=== PATIENT | male | born 1960 | race African-American/Black ===

== ENCOUNTER 2020-03-14 17:39 | Inpatient (IN) | payer MEDICAID ==
[~2020-03-14] VITALS: Ht 177.8 cm; Wt 83.9 kg
[2020-03-14] MEDS ORDERED: SODIUM CHLORIDE 0.9% 1,000 ML IV ONE (19:04)
[2020-03-14 19:47] LABS: BASOPHILS % 0.4 % (0.0-2.0); EOSINOPHILS % 0.1 % (0.0-5.0); HEMATOCRIT. 48.9 % (42.0-52.0); HEMOGLOBIN. 16.2 g/dL (14.0-18.0); LYMPHOCYTES % 19.2 % (20.0-50.0); MEAN CORPUSCULAR HEMOGLOBIN 29.3 pg (28.0-32.0); MEAN CORPUSCULAR VOLUME 88.4 fL (80.0-94.0); MEAN PLATELET VOLUME 9.3 fl (7.4-10.4); MONOCYTES % 8.9 % (2.0-8.0); NEUTROPHILS % 71.4 % (40.0-76.0); PLATELET 189 x1000/uL (130-400); RED BLOOD CELL COUNT 5.53 mill/uL (4.7-6.1); RED CELL DISTRIBUTION WIDTH 15.5 % (11.6-14.6)
[2020-03-14 19:55] LABS: CHLORIDE 105 mEq/L (98-107)
[2020-03-14] MEDS ORDERED: ASPIRIN 325MG EC TABLET PO ONE (20:30)
[2020-03-15] MEDS ORDERED: ACETAMINOPHEN 325MG TABLET PO PRN (00:30)
[2020-03-15] MEDS ORDERED: ATORVASTATIN CALCIUM 40MG TABLET PO SCH (00:30)
[2020-03-15] MEDS ORDERED: TRAZODONE HCL 50MG TABLET PO PRN (00:30)
[2020-03-15] MEDS ORDERED: NITROGLYCERIN 0.4MG TABLET SL SL PRN (00:30)
[2020-03-15] MEDS ORDERED: ONDANSETRON HCL 4MG/2ML INJ IV PRN (00:30)
[2020-03-15 01:00] VITALS: BP 168/98
[2020-03-15 04:00] VITALS: BP 156/89
[2020-03-15 07:53] LABS: BASOPHILS % 0.9 % (0.0-2.0); EOSINOPHILS % 1.8 % (0.0-5.0); HEMATOCRIT. 42.6 % (42.0-52.0); LYMPHOCYTES % 40.3 % (20.0-50.0); MEAN CORPUSCULAR HEMOGLOBIN 28.9 pg (28.0-32.0); MEAN CORPUSCULAR VOLUME 87.9 fL (80.0-94.0); MEAN PLATELET VOLUME 9.5 fl (7.4-10.4); MONOCYTES % 8.7 % (2.0-8.0); NEUTROPHILS % 48.3 % (40.0-76.0); PLATELET 199 x1000/uL (130-400); RED BLOOD CELL COUNT 4.85 mill/uL (4.7-6.1); RED CELL DISTRIBUTION WIDTH 15.3 % (11.6-14.6)
[2020-03-15 07:58] LABS: CHLORIDE 106 mEq/L (98-107)
[2020-03-15 08:00] VITALS: BP 165/101
[2020-03-15] MEDS: CARVEDILOL 3.125 MG TABLET PO SCH ×2 (09:22→20:50)
[2020-03-15] MEDS: ASPIRIN 81MG EC TABLET PO SCH (09:22)
[2020-03-15] MEDS: HEPARIN 5000 UNITS/ML VIAL SUBCUT SCH ×2 (09:23→20:50)
[2020-03-15] MEDS ORDERED: REGADENOSON 0.4 MG/5 ML IV NR (10:30)
[2020-03-15] MEDS: AMLODIPINE 5MG TABLET PO SCH ×2 (11:54→20:50)
[2020-03-15 12:00] VITALS: BP 140/81
[2020-03-15 16:00] VITALS: BP 159/78
[2020-03-15 20:00] VITALS: BP 133/64
[2020-03-15] MEDS: CLONIDINE 0.1MG TABLET PO SCH (20:49)
[2020-03-15] MEDS ORDERED: ATORVASTATIN CALCIUM 10MG TABLET PO SCH (21:00)
[2020-03-16] VITALS: BP 139/84
[2020-03-16 04:00] VITALS: BP 127/76
[2020-03-16 07:05] LABS: BASOPHILS % 0.5 % (0.0-2.0); EOSINOPHILS % 2.3 % (0.0-5.0); HEMATOCRIT. 42.1 % (42.0-52.0); LYMPHOCYTES % 48.2 % (20.0-50.0); MEAN CORPUSCULAR HEMOGLOBIN 29.1 pg (28.0-32.0); MEAN CORPUSCULAR VOLUME 87.8 fL (80.0-94.0); MEAN PLATELET VOLUME 9.4 fl (7.4-10.4); PLATELET 208 x1000/uL (130-400); RED CELL DISTRIBUTION WIDTH 15.2 % (11.6-14.6)
[2020-03-16 07:07] LABS: CHLORIDE 107 mEq/L (98-107)
[2020-03-16 07:17] LABS: LDL CHOLESTEROL 99 mg/dL (5-100)
[2020-03-16 07:20] LABS: HDL CHOLESTEROL 34 mg/dL (40-59)
[2020-03-16 08:00] VITALS: BP 146/99
[2020-03-16] MEDS: CARVEDILOL 3.125 MG TABLET PO SCH (09:00)
[2020-03-16] MEDS: HEPARIN 5000 UNITS/ML VIAL SUBCUT SCH (09:00)
[2020-03-16] MEDS: ASPIRIN 81MG EC TABLET PO SCH (09:00)
[2020-03-16] MEDS: CLONIDINE 0.1MG TABLET PO SCH (09:00)
[2020-03-16] MEDS: AMLODIPINE 5MG TABLET PO SCH (09:00)
[2020-03-16] MEDS ORDERED: REGADENOSON 0.4 MG/5 ML IV ONE (10:03)
[2020-03-16] MEDS ORDERED: AMLO5TAB88 PO (13:09)
[2020-03-16] MEDS ORDERED: COR3 PO (13:09)
[2020-03-16] MEDS ORDERED: COR3 MT (13:21)
[2020-03-16] MEDS ORDERED: HYDR-4134 MT (13:21)
[2020-03-16] MEDS ORDERED: CLONIDINE 0.1MG TABLET PO SCH (14:00)
[2020-03-16] MEDS ORDERED: HYDRALAZINE HCL 25MG TABLET PO SCH (14:00)
[2020-03-16] MEDS ORDERED: PANT40TA4 MT (14:12)
[2020-03-16] MEDS ORDERED: SIME125C MT (14:12)
[2020-03-16] MEDS ORDERED: MAGNESIUM/ALUMINUM HYDROXIDE/SIMETHICONE 30ML UDC PO SCH (14:15)
[2020-03-16] MEDS ORDERED: PANTOPRAZOLE 40MG DR TABLET PO SCH (14:15)
[2020-03-16 14:32] VITALS: BP 143/84
== END 2020-03-16 16:00 | disposition home or self-care (01) | DRG 190 ==
LOC: ER 17:39 → 8WST 22:45 → ENRESERV 23:38 → 8WST 03-15 05:09
PROVIDERS: ADMIT Internal Medicine; ATTEND Internal Medicine
DX: I21.4 Non-ST elevation (NSTEMI) myocardial infarction (principal); I24.8 Other forms of acute ischemic heart disease; N17.9 Acute kidney failure, unspecified; I13.10 Hypertensive heart and chronic kidney disease without heart failure, with stage 1 through stage 4 chronic kidney disease, or unspecified chronic kidney disease; E87.1 Hypo-osmolality and hyponatremia; E78.5 Hyperlipidemia, unspecified; E11.22 Type 2 diabetes mellitus with diabetic chronic kidney disease; N18.9 Chronic kidney disease, unspecified; R17 Unspecified jaundice; I87.2 Venous insufficiency (chronic) (peripheral); F17.210 Nicotine dependence, cigarettes, uncomplicated; Z59.0 Homelessness; I25.2 Old myocardial infarction; Z82.49 Family history of ischemic heart disease and other diseases of the circulatory system; Z86.718 Personal history of other venous thrombosis and embolism; Z91.14 Patient's other noncompliance with medication regimen; Z79.899 Other long term (current) drug therapy
CPT/HCPCS: 36415; 71045; 74176; 76770; 78452; 80048; 80053; 80061; 83036; 83735; 84484; 85025; 85379; 93005; 93017; 93306; 93970; 99285; A9500; J1644; J2785; J7030

== ENCOUNTER 2020-03-20 13:30 | Emergency (ER) | payer MEDICAID, OTHER ==
[~2020-03-20] VITALS: Ht 177.8 cm; Wt 82.0 kg
[~2020-03-20 13:30] MED LIST: COR3 MT; HYDR-4134 MT; PANT40TA4 MT; SIME125C MT
[2020-03-20] MEDS ORDERED: SODIUM CHLORIDE 0.9% 500 ML IV ONE (14:00)
[2020-03-20 14:19] LABS: BASOPHILS % 1.2 % (0.0-2.0); EOSINOPHILS % 1.3 % (0.0-5.0); HEMATOCRIT. 46.1 % (42.0-52.0); HEMOGLOBIN. 15.4 g/dL (14.0-18.0); LYMPHOCYTES % 42.7 % (20.0-50.0); MEAN CORPUSCULAR HEMOGLOBIN 29.4 pg (28.0-32.0); MEAN CORPUSCULAR VOLUME 87.7 fL (80.0-94.0); MONOCYTES % 6.1 % (2.0-8.0); NEUTROPHILS % 48.7 % (40.0-76.0); PLATELET 286 x1000/uL (130-400); RED BLOOD CELL COUNT 5.26 mill/uL (4.7-6.1); RED CELL DISTRIBUTION WIDTH 15.3 % (11.6-14.6)
[2020-03-20 14:28] LABS: CHLORIDE 106 mEq/L (98-107)
[2020-03-20 14:39] LABS: B-HCG QUANTITATIVE < 1 mIU/mL (<3)
[2020-03-20 16:30] VITALS: BP 130/85
== END 2020-03-20 16:32 | disposition home or self-care (01) ==
LOC: ER 13:53
DX: T67.5XXA Heat exhaustion, unspecified, initial encounter (principal); R55 Syncope and collapse; I10 Essential (primary) hypertension; Z79.899 Other long term (current) drug therapy; X58.XXXA Exposure to other specified factors, initial encounter; Y93.89 Activity, other specified; Y92.89 Other specified places as the place of occurrence of the external cause; Y99.8 Other external cause status
CPT/HCPCS: 36415; 71045; 80053; 83880; 84484; 84702; 85025; 93005; 96360; 99285; J7040

== ENCOUNTER 2020-03-25 10:59 | Emergency (ER) | payer MEDICAID ==
[~2020-03-25] VITALS: Ht 177.8 cm; Wt 81.6 kg
[2020-03-25] MEDS ORDERED: SODIUM CHLORIDE 0.9% 1,000 ML IV ONE (11:30)
[2020-03-25 11:55] LABS: BASOPHILS % 0.9 % (0.0-2.0); EOSINOPHILS % 1.6 % (0.0-5.0); HEMATOCRIT. 47.4 % (42.0-52.0); HEMOGLOBIN. 15.8 g/dL (14.0-18.0); LYMPHOCYTES % 32.5 % (20.0-50.0); MEAN CORPUSCULAR HEMOGLOBIN 29.5 pg (28.0-32.0); MEAN CORPUSCULAR VOLUME 88.3 fL (80.0-94.0); MONOCYTES % 4.4 % (2.0-8.0); NEUTROPHILS % 60.6 % (40.0-76.0); PLATELET 262 x1000/uL (130-400); RED BLOOD CELL COUNT 5.37 mill/uL (4.7-6.1); RED CELL DISTRIBUTION WIDTH 15.3 % (11.6-14.6)
[2020-03-25 12:04] LABS: CHLORIDE 107 mEq/L (98-107)
[2020-03-25] MEDS ORDERED: ASPIRIN 81MG TABLET PO ONE (12:45)
[2020-03-25 13:45] VITALS: BP 179/92
[2020-03-25] MEDS ORDERED: DOCUSATE SODIUM 100MG CAPSULE PO PRN (14:15)
[2020-03-25] MEDS ORDERED: MAGNESIUM/ALUMINUM HYDROXIDE/SIMETHICONE 30ML UDC PO PRN (14:15)
[2020-03-25] MEDS ORDERED: CLONIDINE 0.1MG TABLET PO PRN (14:15)
[2020-03-25] MEDS ORDERED: HYDROCODONE/ACETAMINOPHEN 5/325MG TABLET PO PRN (14:15)
[2020-03-25] MEDS ORDERED: ACETAMINOPHEN 325MG TABLET PO PRN (14:15)
[2020-03-25] MEDS ORDERED: ONDANSETRON HCL 4MG/2ML INJ IV PRN (14:15)
[2020-03-25] MEDS ORDERED: SODIUM CHLORIDE 0.9% 1,000 ML IV SCH (14:42)
[2020-03-25 14:44] LABS: CLARITY URINE CLEAR (CLEAR); COLOR URINE DARK YELLOW (YELLOW); KETONES URINE TRACE (NEGATIVE); LEUKOCYTE ESTERASE URINE TRACE (NEGATIVE); NITRITE URINE NEGATIVE (NEGATIVE); OCCULT BLOOD URINE NEGATIVE (NEGATIVE); PH URINE 5.5 (4.5-8.0); PROTEIN URINE 1+ (NEGATIVE); SPECIFIC GRAVITY URINE 1.027 (1.005-1.030)
[2020-03-25] MEDS ORDERED: ENOXAPARIN 40MG/0.4ML SYR SUBCUT SCH (15:00)
[2020-03-25] MEDS ORDERED: CEFTRIAXONE 1 G PREMIX 50 ML IV ONE (15:45)
== END 2020-03-25 15:19 | disposition left against medical advice (07) ==
LOC: ER 10:59 → CANBEDREQ 15:17 → ER 15:19
DX: R55 Syncope and collapse (principal); N39.0 Urinary tract infection, site not specified; I95.9 Hypotension, unspecified; I10 Essential (primary) hypertension; Z79.899 Other long term (current) drug therapy
CPT/HCPCS: 36415; 71045; 80053; 81003; 82962; 83880; 84484; 85025; 87086; 93005; 96360; 99285; J7030; Z7610

== ENCOUNTER 2021-03-31 07:33 | Inpatient (IN) | payer MEDICAID ==
[~2021-03-31] VITALS: Ht 172.7 cm; Wt 77.7 kg
[~2021-03-31 07:33] MED LIST changes: +AMLO10TA80 PO; +AMOX1TAB16 PO; -COR3 MT; -HYDR-4134 MT; +LOSA50TA3 PO; -PANT40TA4 MT; +PANT40TA51 MT
[2021-03-31] MEDS ORDERED: FAMOTIDINE 20MG/2ML VIAL IV ONE (07:45)
[2021-03-31] MEDS ORDERED: METHYLPREDNISOLONE SOD SUCC 125 MG/2 ML VIAL IV ONE (07:45)
[2021-03-31] MEDS ORDERED: DIPHENHYDRAMINE 50MG/ML VIAL IV ONE (07:45)
[2021-03-31] MEDS ORDERED: KETOROLAC 15MG/ML VIAL IV ONE ×2 (08:15→15:00)
[2021-03-31] MEDS ORDERED: TRANEXAMIC ACID 1,000 MG/10 ML IV ONE (08:15)
[2021-03-31 08:21] LABS: BASOPHILS % 0.7 % (0.0-2.0); EOSINOPHILS % 1.5 % (0.0-5.0); HEMATOCRIT. 46.3 % (42.0-52.0); HEMOGLOBIN. 15.3 g/dL (14.0-18.0); LYMPHOCYTES % 40.9 % (20.0-50.0); MEAN CORPUSCULAR HEMOGLOBIN 30.3 pg (28.0-32.0); MEAN CORPUSCULAR VOLUME 91.6 fL (80.0-94.0); MEAN PLATELET VOLUME 8.5 fl (7.4-10.4); MONOCYTES % 6.2 % (2.0-8.0); NEUTROPHILS % 50.7 % (40.0-76.0); PLATELET 271 x1000/uL (130-400); RED BLOOD CELL COUNT 5.06 mill/uL (4.7-6.1)
[2021-03-31 08:33] LABS: CHLORIDE 115 mEq/L (98-107)
[2021-03-31] MEDS ORDERED: DOCUSATE SODIUM 100MG CAPSULE PO PRN (18:15)
[2021-03-31] MEDS ORDERED: LORAZEPAM 2MG/ML CPJ IV PRN (18:15)
[2021-03-31] MEDS ORDERED: HYDROCODONE/ACETAMINOPHEN 5/325MG TABLET PO PRN (18:15)
[2021-03-31] MEDS ORDERED: IPRATROPIUM/ALBUTEROL 0.5-3(2.5)MG/3ML NEB HHN PRN (18:15)
[2021-03-31] MEDS ORDERED: ACETAMINOPHEN 325MG TABLET PO PRN (18:15)
[2021-03-31] MEDS ORDERED: ONDANSETRON HCL 4MG/2ML INJ IV PRN (18:15)
[2021-03-31] MEDS ORDERED: GUAIFENESIN 200MG/10ML SUGAR FREE UDC PO PRN (18:15)
[2021-03-31] MEDS ORDERED: MAGNESIUM/ALUMINUM HYDROXIDE/SIMETHICONE 30ML UDC PO PRN (18:15)
[2021-03-31] MEDS: ENOXAPARIN 40MG/0.4ML SYR SUBCUT SCH (18:35)
[2021-03-31] MEDS: METHYLPREDNISOLONE SOD SUCC 40 MG/ML VIAL IV SCH (18:35)
[2021-03-31 21:40] VITALS: BP 117/77
[2021-03-31] MEDS: SODIUM CHLORIDE 0.9% INJ 3ML FLUSH IVF SCH (22:55)
[2021-04-01] VITALS: BP 174/91
[2021-04-01] MEDS: HYDRALAZINE 20MG/ML VIAL IV PRN (02:25)
[2021-04-01] MEDS: METHYLPREDNISOLONE SOD SUCC 40 MG/ML VIAL IV SCH ×2 (02:25→09:30)
[2021-04-01] MEDS ORDERED: NALOXONE HCL 0.4MG/ML VIAL IV PRN (02:30)
[2021-04-01] MEDS: MORPHINE SULFATE 2 MG/ML CPJ (NOT FOR IM USE) IV PRN ×4 (02:33→23:19)
[2021-04-01 04:00] VITALS: BP 166/82
[2021-04-01] MEDS: DIPHENHYDRAMINE 50MG/ML VIAL IV PRN ×2 (06:39→21:06)
[2021-04-01] MEDS: SODIUM CHLORIDE 0.9% INJ 3ML FLUSH IVF SCH (06:39)
[2021-04-01 06:43] LABS: BASOPHILS % 0.5 % (0.0-2.0); EOSINOPHILS % 0.1 % (0.0-5.0); HEMATOCRIT. 44.5 % (42.0-52.0); HEMOGLOBIN. 14.8 g/dL (14.0-18.0); LYMPHOCYTES % 13.8 % (20.0-50.0); MEAN CORPUSCULAR VOLUME 90.4 fL (80.0-94.0); MEAN PLATELET VOLUME 9.4 fl (7.4-10.4); MONOCYTES % 1.6 % (2.0-8.0); PLATELET 247 x1000/uL (130-400); RED BLOOD CELL COUNT 4.93 mill/uL (4.7-6.1); RED CELL DISTRIBUTION WIDTH 14.6 % (11.6-14.6)
[2021-04-01 06:51] LABS: CHLORIDE 106 mEq/L (98-107)
[2021-04-01 07:07] LABS: CREATINE KINASE 226 IU/L (39-308)
[2021-04-01 07:14] LABS: CREATINE KINASE MB FRACTION 2.3 ng/mL (0.5-3.6)
[2021-04-01 08:00] VITALS: BP 129/78
[2021-04-01] MEDS ORDERED: DIPHENHYDRAMINE 50MG/ML VIAL IV SCH (11:15)
[2021-04-01 12:05] LABS: T4 FREE 0.91 ng/dL (0.76-1.46)
[2021-04-01] MEDS: NICOTINE 14MG PATCH TD SCH (12:51)
[2021-04-01] MEDS: METHYLPREDNISOLONE SOD SUCC 125 MG/2 ML VIAL IV SCH ×3 (12:52→23:18)
[2021-04-01 15:56] LABS: CREATINE KINASE MB FRACTION 2.1 ng/mL (0.5-3.6)
[2021-04-01 16:00] VITALS: BP 165/83
[2021-04-01] MEDS: CLONIDINE 0.1MG TABLET PO PRN (17:16)
[2021-04-01] MEDS: ENOXAPARIN 40MG/0.4ML SYR SUBCUT SCH (17:17)
[2021-04-01 20:00] VITALS: BP 155/73
[2021-04-02] VITALS: BP 159/84
[2021-04-02 04:00] VITALS: BP 164/80
[2021-04-02] MEDS: SODIUM CHLORIDE 0.9% INJ 3ML FLUSH IVF SCH ×2 (05:48→21:29)
[2021-04-02] MEDS: MORPHINE SULFATE 2 MG/ML CPJ (NOT FOR IM USE) IV PRN ×3 (05:48→18:14)
[2021-04-02] MEDS: METHYLPREDNISOLONE SOD SUCC 125 MG/2 ML VIAL IV SCH ×4 (05:49→23:11)
[2021-04-02] MEDS: CLONIDINE 0.1MG TABLET PO PRN (06:01)
[2021-04-02 08:00] VITALS: BP_SYST 152; BP_SYST 154; BP_DIAS 62; BP_DIAS 96
[2021-04-02] MEDS: NICOTINE 14MG PATCH TD SCH (08:42)
[2021-04-02 11:56] VITALS: BP 168/88
[2021-04-02 16:00] VITALS: BP 178/91
[2021-04-02] MEDS: ENOXAPARIN 40MG/0.4ML SYR SUBCUT SCH (17:43)
[2021-04-02] MEDS: HYDRALAZINE 20MG/ML VIAL IV PRN (18:20)
[2021-04-02 20:00] VITALS: BP 170/83
[2021-04-03] VITALS: BP 128/86
[2021-04-03] MEDS: MORPHINE SULFATE 2 MG/ML CPJ (NOT FOR IM USE) IV PRN ×2 (00:14→06:14)
[2021-04-03 04:00] VITALS: BP 155/84
[2021-04-03] MEDS: SODIUM CHLORIDE 0.9% INJ 3ML FLUSH IVF SCH (06:15)
[2021-04-03] MEDS: METHYLPREDNISOLONE SOD SUCC 125 MG/2 ML VIAL IV SCH (06:15)
[2021-04-03 08:00] VITALS: BP 153/72
[2021-04-03] MEDS: NICOTINE 14MG PATCH TD SCH (08:14)
[2021-04-03] MEDS: DIPHENHYDRAMINE 50MG/ML VIAL IV PRN (08:15)
[2021-04-03 09:40] VITALS: BP 153/72
== END 2021-04-03 10:00 | disposition home or self-care (01) | DRG 811 ==
LOC: ER 07:33 → EDBEDREQ 13:07 → ENRESERV 19:24 → ER 21:03 → 7EST 21:29
PROVIDERS: ADMIT Internal Medicine; ATTEND Internal Medicine
DX: T78.3XXA Angioneurotic edema, initial encounter (principal); E44.1 Mild protein-calorie malnutrition; F17.210 Nicotine dependence, cigarettes, uncomplicated; I10 Essential (primary) hypertension; T44.5X5A Adverse effect of predominantly beta-adrenoreceptor agonists, initial encounter; Z20.822 Contact with and (suspected) exposure to COVID-19; I25.10 Atherosclerotic heart disease of native coronary artery without angina pectoris; Z71.6 Tobacco abuse counseling; Z79.899 Other long term (current) drug therapy; Y92.89 Other specified places as the place of occurrence of the external cause; Z68.26 Body mass index [BMI] 26.0-26.9, adult; E83.51 Hypocalcemia
CPT/HCPCS: 36415; 80053; 82550; 82553; 84439; 84443; 84481; 84484; 85025; 87426; 93005; 93970; 99285; J0360; J1200; J1650; J1885; J2060; J2270; J2920; J2930; J3490

== ENCOUNTER 2021-09-28 20:17 | Emergency (ER) | payer MEDICAID ==
[~2021-09-28] VITALS: Ht 177.8 cm; Wt 78.0 kg
[~2021-09-28 20:17] MED LIST changes: -AMOX1TAB16 PO
[2021-09-28] MEDS ORDERED: KETOROLAC 60MG/2ML VIAL IM ONE (22:15)
[2021-09-28 23:06] LABS: BASOPHILS % 1.4 % (0.0-2.0); EOSINOPHILS % 1.6 % (0.0-5.0); HEMATOCRIT. 40.5 % (42.0-52.0); HEMOGLOBIN. 13.8 g/dL (14.0-18.0); LYMPHOCYTES % 40.1 % (20.0-50.0); MEAN CORPUSCULAR HEMOGLOBIN 31.3 pg (28.0-32.0); MEAN CORPUSCULAR VOLUME 91.4 fL (80.0-94.0); MEAN PLATELET VOLUME 8.8 fl (7.4-10.4); MONOCYTES % 7.1 % (2.0-8.0); NEUTROPHILS % 49.8 % (40.0-76.0); PLATELET 224 x1000/uL (130-400); RED BLOOD CELL COUNT 4.43 mill/uL (4.7-6.1)
[2021-09-28 23:09] LABS: CHLORIDE 109 mEq/L (98-107)
[2021-09-28 23:13] LABS: ETHANOL BLOOD 227 mg/dL
[2021-09-29] MEDS ORDERED: IBUP-2029 MT (01:14)
[2021-09-29] MEDS ORDERED: AMLODIPINE 5MG TABLET PO ONE ×2 (01:30→03:45)
[2021-09-29 01:42] LABS: *AMPHETAMINES SCREEN URINE NEGATIVE (NEGATIVE); *BARBITURATES SCREEN URINE NEGATIVE (NEGATIVE); *BENZODIAZEPINES SCREEN URINE NEGATIVE (NEGATIVE); *COCAINE SCREEN URINE NEGATIVE (NEGATIVE); CANNABINOID URINE SCREEN NEGATIVE (NEGATIVE); METHADONE URINE SCREEN NEGATIVE (NEGATIVE); PHENCYCLIDINE URINE SCREEN NEGATIVE (NEGATIVE)
[2021-09-29 01:43] LABS: OPIATES URINE SCREEN NEGATIVE (NEGATIVE)
[2021-09-29] MEDS ORDERED: IBUPROFEN 600MG TABLET PO ONE (02:00)
[2021-09-29] MEDS ORDERED: ACETAMINOPHEN 325MG TABLET PO ONE (02:15)
[2021-09-29 04:45] VITALS: BP 213/123
[2021-09-29] MEDS ORDERED: CLONIDINE 0.1MG TABLET PO ONE (06:00)
== END 2021-09-29 07:20 | disposition home or self-care (01) ==
LOC: ER 20:17
DX: T51.91XA Toxic effect of unspecified alcohol, accidental (unintentional), initial encounter (principal); S09.8XXA Other specified injuries of head, initial encounter; S60.211A Contusion of right wrist, initial encounter; S70.01XA Contusion of right hip, initial encounter; I16.0 Hypertensive urgency; F10.129 Alcohol abuse with intoxication, unspecified; F17.210 Nicotine dependence, cigarettes, uncomplicated; I25.10 Atherosclerotic heart disease of native coronary artery without angina pectoris; I10 Essential (primary) hypertension; W10.9XXA Fall (on) (from) unspecified stairs and steps, initial encounter; Y92.89 Other specified places as the place of occurrence of the external cause; Y90.7 Blood alcohol level of 200-239 mg/100 ml; Z71.6 Tobacco abuse counseling
CPT/HCPCS: 36415; 70450; 73110; 73502; 80053; 80305; 80320; 82962; 85025; 96372; 99285; 99406; J1885; G0480

== ENCOUNTER 2022-10-08 14:40 | Emergency (ER) | payer OTHER ==
[~2022-10-08] VITALS: Ht 180.3 cm; Wt 82.0 kg
[~2022-10-08 14:40] MED LIST changes: +IBUP-2029 MT
[2022-10-08 14:52] VITALS: BP 152/94
[2022-10-08] MEDS ORDERED: CHLO25CA10 PO (15:15)
[2022-10-08] MEDS ORDERED: CHLORDIAZEPOXIDE 25MG CAPSULE PO ONE (15:15)
== END 2022-10-08 16:12 | disposition home or self-care (01) ==
LOC: ER 14:40
DX: F10.239 Alcohol dependence with withdrawal, unspecified (principal); I10 Essential (primary) hypertension; I25.10 Atherosclerotic heart disease of native coronary artery without angina pectoris; Y90.9 Presence of alcohol in blood, level not specified; Z87.898 Personal history of other specified conditions
CPT/HCPCS: 99283